=== PATIENT | male | born 1965 | race Caucasian/White ===

== ENCOUNTER 2016-09-09 15:03 | Inpatient (IN) | payer MEDICAID ==
[~2016-09-09] VITALS: Ht 180.3 cm; Wt 83.3 kg
[~2016-09-09 15:03] MED LIST: QUET200T PO
[2016-09-09] MEDS ORDERED: LITH300C3 PO (15:33)
[2016-09-09 15:56] LABS: BASOPHILS % (AUTO) 0.4 % (0.0-2.0); EOSINOPHILS % (AUTO) 0.4 % (1.0-6.0); HEMATOCRIT 42.2 % (41-53); HEMOGLOBIN 13.8 g/dL (13.5-17.5); LYMPHOCYTES # (AUTO) 2.5 K/uL (1.0-4.8); MEAN CORPUSCULAR HEMOGLOBIN 29.8 pg (26.0-34.0); MEAN CORPUSCULAR HGB CONC 32.7 G/dL (31.0-37.0); MEAN CORPUSCULAR VOLUME 91 fL (80-100); MONOCYTES # (AUTO) 1.2 K/uL (0.1-1.0); MONOCYTES % (AUTO) 10.7 % (2.0-9.0); NEUTROPHILS # (AUTO) 7.5 K/uL (1.8-7.7); NEUTROPHILS % (AUTO) 66.5 % (40.0-70.0); PLATELET COUNT (AUTO) 348 K/uL (150-450); RED BLOOD CELL COUNT(AUTO) 4.62 MIL/uL (4.50-5.90); RED CELL DISTRIBUTION WIDTH 13.3 % (11.5-14.5); WHITE BLOOD COUNT (AUTO) 11.2 K/uL (4.5-11.0)
[2016-09-09 16:04] LABS: ANION GAP 11 mmol/L (8-16); CALCIUM, TOTAL 8.6 mg/dL (8.8-10.5); CARBON DIOXIDE 28 mmol/L (22-29); CHLORIDE 102 mmol/L (98-107); CREATININE 0.94 mg/dL (0.60-1.30); GLOMERULAR FILTR. RATE CALC > 60 mL/min (>60); SODIUM SERUM 141 mmol/L (136-145); UREA NITROGEN, BLOOD 14 mg/dL (7-18)
[2016-09-09 16:08] LABS: ALANINE AMINOTRANSFERASE 58 U/L (12-78); ALBUMIN 3.6 g/dL (3.4-5.0); ASPARTATE AMINOTRANSFERASE 88 U/L (15-37); BILIRUBIN,TOTAL 1.1 mg/dL (0.1-1.0)
[2016-09-09] MEDS ORDERED: POTASSIUM CHLORIDE 20 MEQ ER TABLET PO ONE (16:15)
[2016-09-09 16:20] LABS: LITHIUM < 0.20 mmol/L (0.60-1.20)
[2016-09-09] MEDS ORDERED: HALOPERIDOL 5 MG TABLET PO PRN (17:00)
[2016-09-09] MEDS ORDERED: PNEUMOCOCCAL VACCINE POLYVALENT 0.5 ML VIAL [PPSV23] IM ONE (20:30)
[2016-09-10 00:46] VITALS: BP 100/64
[2016-09-10 08:33] VITALS: BP 105/65
[2016-09-10] MEDS: BENZTROPINE MESYLATE 0.5 MG TABLET PO SCH ×2 (08:49→16:49)
[2016-09-10] MEDS: HALOPERIDOL 5 MG TABLET PO SCH ×2 (08:49→16:49)
[2016-09-10] MEDS: LORazepam 2 MG TABLET PO PRN (13:59)
[2016-09-10 16:13] VITALS: BP 123/68
[2016-09-11 01:46] VITALS: BP 107/65
[2016-09-11 08:00] VITALS: BP 100/61
[2016-09-11] MEDS: BENZTROPINE MESYLATE 0.5 MG TABLET PO SCH (08:27)
[2016-09-11] MEDS: HALOPERIDOL 5 MG TABLET PO SCH (08:27)
[2016-09-11] MEDS: QUEtiapine FUMARATE 100 MG TABLET PO SCH ×2 (11:43→16:34)
[2016-09-11 16:20] VITALS: BP 114/76
[2016-09-11] MEDS ORDERED: QUEtiapine FUMARATE 100 MG TABLET PO SCH (17:00)
[2016-09-11] MEDS: TraZODone HCL 100 MG TABLET PO SCH (20:28)
[2016-09-11] MEDS: QUEtiapine FUMARATE 200 MG TABLET PO SCH (20:28)
[2016-09-12 08:04] VITALS: BP 104/66
[2016-09-12] MEDS: QUEtiapine FUMARATE 100 MG TABLET PO SCH ×2 (08:33→16:44)
[2016-09-12 16:11] VITALS: BP 125/80
[2016-09-12] MEDS: QUEtiapine FUMARATE 200 MG TABLET PO SCH (20:39)
[2016-09-12] MEDS: TraZODone HCL 100 MG TABLET PO SCH (20:39)
[2016-09-13 00:27] VITALS: BP 114/75
[2016-09-13 08:05] VITALS: BP 112/70
[2016-09-13] MEDS: QUEtiapine FUMARATE 100 MG TABLET PO SCH ×2 (08:49→16:50)
[2016-09-13 16:09] VITALS: BP 115/76
[2016-09-13] MEDS ORDERED: QUET100T PO (17:07)
[2016-09-13] MEDS: QUEtiapine FUMARATE 300 MG TABLET PO SCH (20:52)
[2016-09-14 00:58] VITALS: BP 109/84
[2016-09-14 08:48] VITALS: BP 87/63
[2016-09-14] MEDS: QUEtiapine FUMARATE 200 MG TABLET PO SCH (08:50)
[2016-09-14] MEDS: LORazepam 2 MG TABLET PO PRN (16:30)
[2016-09-14 16:32] VITALS: BP 106/69
[2016-09-14] MEDS: QUEtiapine FUMARATE 300 MG TABLET PO SCH (20:08)
[2016-09-14] MEDS: ZOLPIDEM TARTRATE 10 MG TABLET PO PRN (20:08)
[2016-09-15 05:49] VITALS: BP 106/75
[2016-09-15 08:22] VITALS: BP 96/70
[2016-09-15] MEDS: QUEtiapine FUMARATE 200 MG TABLET PO SCH (09:05)
[2016-09-15 09:12] VITALS: BP 110/76
[2016-09-15 16:29] VITALS: BP 103/69
[2016-09-15] MEDS: QUEtiapine FUMARATE 300 MG TABLET PO SCH (20:28)
[2016-09-15] MEDS: ZOLPIDEM TARTRATE 10 MG TABLET PO PRN (20:30)
[2016-09-16 05:45] VITALS: BP 112/75
[2016-09-16 08:28] VITALS: BP 109/71
[2016-09-16] MEDS ORDERED: FLUoxetine HCL 20 MG CAPSULE PO SCH (09:00)
[2016-09-16] MEDS: QUEtiapine FUMARATE 200 MG TABLET PO SCH (09:25)
[2016-09-16 16:03] VITALS: BP 111/88
[2016-09-16] MEDS: LORazepam 2 MG TABLET PO PRN (17:13)
[2016-09-16] MEDS ORDERED: FLUO-191 PO (18:30)
[2016-09-16] MEDS ORDERED: QUET300T2 PO (18:30)
== END 2016-09-16 19:15 | disposition home or self-care (01) | DRG 750 ==
LOC: EMS 15:05 → B2S 19:00
PROVIDERS: ADMIT Psychiatry & Neurology Psychiatry; ATTEND Psychiatry & Neurology Psychiatry
PROC: 3E0234Z Introduction of Serum, Toxoid and Vaccine into Muscle, Percutaneous Approach (ICD-10-PCS; principal; 2016-09-09)
DX: F25.0 Schizoaffective disorder, bipolar type (principal); R45.851 Suicidal ideations; Z59.0 Homelessness; S61.511A Laceration without foreign body of right wrist, initial encounter; E87.6 Hypokalemia; D72.829 Elevated white blood cell count, unspecified; F17.210 Nicotine dependence, cigarettes, uncomplicated; M25.512 Pain in left shoulder; Z53.29 Procedure and treatment not carried out because of patient's decision for other reasons; F41.9 Anxiety disorder, unspecified; F19.10 Other psychoactive substance abuse, uncomplicated; S61.512A Laceration without foreign body of left wrist, initial encounter; X83.8XXA Intentional self-harm by other specified means, initial encounter; Y93.89 Activity, other specified; Y92.89 Other specified places as the place of occurrence of the external cause; Y99.8 Other external cause status; Z79.899 Other long term (current) drug therapy
CPT/HCPCS: 84132; 87081; 99285; G0480

== ENCOUNTER 2016-09-23 23:39 | Inpatient (IN) | payer MEDICAID ==
[~2016-09-23] VITALS: Ht 180.3 cm; Wt 83.9 kg
[~2016-09-23 23:39] MED LIST changes: +FLUO-191 PO; +QUET100T PO; -QUET200T PO; +QUET300T2 PO
[2016-09-24] MEDS ORDERED: ZOLPIDEM TARTRATE 10 MG TABLET PO PRN (01:45)
[2016-09-24] MEDS ORDERED: HALOPERIDOL 5 MG TABLET PO PRN (01:45)
[2016-09-24 03:24] VITALS: BP 100/56
[2016-09-24] MEDS ORDERED: CLOTRIMAZOLE 1% 15 GM CREAM TP PRN (04:15)
[2016-09-24] MEDS ORDERED: BACITRACIN 28.4 GM OINTMENT TP PRN (04:30)
[2016-09-24] MEDS ORDERED: PNEUMOCOCCAL VACCINE POLYVALENT 0.5 ML VIAL [PPSV23] IM ONE (04:45)
[2016-09-24 09:26] VITALS: BP 108/63
[2016-09-24] MEDS: LORazepam 2 MG TABLET PO PRN (16:11)
[2016-09-24 17:57] VITALS: BP 110/70
[2016-09-24] MEDS ORDERED: ACETAMINOPHEN 325 MG TABLET PO PRN (19:00)
[2016-09-24] MEDS ORDERED: IBUPROFEN 400 MG TABLET PO PRN (19:00)
[2016-09-24] MEDS: QUEtiapine FUMARATE 300 MG TABLET PO SCH (20:36)
[2016-09-25 00:13] VITALS: BP 109/66
[2016-09-25] MEDS: QUEtiapine FUMARATE 200 MG TABLET PO SCH (08:46)
[2016-09-25 08:59] LABS: BASOPHILS # (AUTO) 0.06 K/uL (0.00-0.20); BASOPHILS % (AUTO) 0.6 % (0.0-2.0); EOSINOPHILS # (AUTO) 0.69 K/uL (0.00-0.70); HEMATOCRIT 42.5 % (41-53); HEMOGLOBIN 13.9 g/dL (13.5-17.5); LYMPHOCYTES # (AUTO) 2.5 K/uL (1.0-4.8); LYMPHOCYTES % (AUTO) 24.4 % (22.0-44.0); MEAN CORPUSCULAR HEMOGLOBIN 30.4 pg (26.0-34.0); MEAN CORPUSCULAR HGB CONC 32.8 G/dL (31.0-37.0); MEAN CORPUSCULAR VOLUME 93 fL (80-100); MONOCYTES # (AUTO) 0.6 K/uL (0.1-1.0); MONOCYTES % (AUTO) 5.5 % (2.0-9.0); NEUTROPHILS # (AUTO) 6.4 K/uL (1.8-7.7); NEUTROPHILS % (AUTO) 62.7 % (40.0-70.0); PLATELET COUNT (AUTO) 284 K/uL (150-450); RED BLOOD CELL COUNT(AUTO) 4.59 MIL/uL (4.50-5.90); RED CELL DISTRIBUTION WIDTH 13.7 % (11.5-14.5); WHITE BLOOD COUNT (AUTO) 10.1 K/uL (4.5-11.0)
[2016-09-25] MEDS ORDERED: FLUoxetine HCL 20 MG CAPSULE PO SCH (09:00)
[2016-09-25 09:16] VITALS: BP 114/62
[2016-09-25 09:25] LABS: HEMOGLOBIN A1C 5.9 % (4.5-6.2)
[2016-09-25 09:29] LABS: ALANINE AMINOTRANSFERASE 27 U/L (12-78); ALBUMIN 3.1 g/dL (3.4-5.0); ANION GAP 6 mmol/L (8-16); ASPARTATE AMINOTRANSFERASE 19 U/L (15-37); BILIRUBIN,TOTAL 0.3 mg/dL (0.1-1.0); CALCIUM, TOTAL 8.4 mg/dL (8.8-10.5); CARBON DIOXIDE 28 mmol/L (22-29); CHLORIDE 105 mmol/L (98-107); CHOL/HDL RATIO 2.5 (4.2-7.3); CREATININE 0.95 mg/dL (0.60-1.30); GLOMERULAR FILTR. RATE CALC > 60 mL/min (>60); POTASSIUM 3.7 mmol/L (3.5-5.1); SODIUM SERUM 139 mmol/L (136-145); THYROID STIMULATING HORMONE 0.98 uIU/mL (0.36-3.74); TOTAL PROTEIN, SERUM 6.7 g/dL (6.4-8.2); UREA NITROGEN, BLOOD 14 mg/dL (7-18)
[2016-09-25] MEDS: MUPIROCIN CALCIUM 2% 22 GM OINTMENT NASAL SCH (19:05)
[2016-09-25] MEDS: QUEtiapine FUMARATE 300 MG TABLET PO SCH (20:20)
[2016-09-26 08:30] VITALS: BP 124/74
[2016-09-26] MEDS: QUEtiapine FUMARATE 200 MG TABLET PO SCH (10:09)
[2016-09-26] MEDS: FLUoxetine HCL 20 MG CAPSULE PO SCH (10:09)
[2016-09-26] MEDS: MUPIROCIN CALCIUM 2% 22 GM OINTMENT NASAL SCH ×2 (10:09→16:39)
[2016-09-26 16:31] VITALS: BP 115/77
[2016-09-26] MEDS: QUEtiapine FUMARATE 300 MG TABLET PO SCH (20:12)
[2016-09-27 08:48] VITALS: BP 108/67
[2016-09-27] MEDS: FLUoxetine HCL 20 MG CAPSULE PO SCH (09:26)
[2016-09-27] MEDS: QUEtiapine FUMARATE 200 MG TABLET PO SCH (09:27)
[2016-09-27] MEDS: MUPIROCIN CALCIUM 2% 22 GM OINTMENT NASAL SCH ×2 (09:27→17:36)
[2016-09-27] MEDS: LORazepam 2 MG TABLET PO PRN (09:27)
[2016-09-27 19:32] VITALS: BP 100/67
[2016-09-27] MEDS: QUEtiapine FUMARATE 300 MG TABLET PO SCH (20:11)
[2016-09-28 08:00] VITALS: BP 102/70
[2016-09-28] MEDS ORDERED: FLUoxetine HCL 20 MG CAPSULE PO SCH (09:00)
[2016-09-28] MEDS: QUEtiapine FUMARATE 200 MG TABLET PO SCH (09:19)
[2016-09-28] MEDS: LORazepam 2 MG TABLET PO PRN (09:19)
[2016-09-28] MEDS: MUPIROCIN CALCIUM 2% 22 GM OINTMENT NASAL SCH (09:21)
[2016-09-28] MEDS ORDERED: MUPI1OIN4 NS (13:30)
== END 2016-09-28 14:45 | disposition home or self-care (01) | DRG 750 ==
LOC: B2S 09-24 01:30 → 3EI 09-25 15:15
PROVIDERS: ADMIT Psychiatry & Neurology Psychiatry; ATTEND Psychiatry & Neurology Psychiatry
DX: F25.0 Schizoaffective disorder, bipolar type (principal); J44.9 Chronic obstructive pulmonary disease, unspecified; Z59.0 Homelessness; M25.512 Pain in left shoulder; F10.10 Alcohol abuse, uncomplicated; F19.10 Other psychoactive substance abuse, uncomplicated; Z22.322 Carrier or suspected carrier of Methicillin resistant Staphylococcus aureus
CPT/HCPCS: 83036; 84439; 84443; 87081; 90471